=== PATIENT | male | born 1970 | race Hispanic/Latino ===

== ENCOUNTER 2021-09-30 21:32 | Emergency (ER) | payer OTHER ==
[2021-09-30 23:03] LABS: Bilirubin Neg (Negative); Blood, Urine 50 (Negative); Clarity Clear (Clear); Glucose, Urine (Dipstick) Normal (Negative); Ketone, Urine Negative (Negative); Leukocyte Negative (Negative); Nitrite Negative (Negative); Protein, Urine (Dipstick) Negative (Neg-Trace); Urobilinogen Normal mg/dL (Less than 2)
[2021-09-30 23:18] LABS: Bacteria/HPF Rare-Few HPF (None Seen); Squamous Epithelial 0-3 HPF (0-3)
[2021-09-30 23:45] LABS: ALT (SGPT) 55 U/L (8-55); AST (SGOT) 110 U/L (5-34); Albumin 2.4 g/dL (3.5-5.0); Alkaline Phosphatase 201 U/L (40-110); Anion Gap 9 mmol/L (10-20); BUN (Urea Nitrogen) 11 mg/dL (8.4-25.7); Bilirubin, Total 2.6 mg/dL (0.2-1.2); CK (CPK) 1637 U/L (30-200); Calc. Creatinine Clearance 0 mL/min (70-130); Calcium 7.3 mg/dL (7.8-10.44); Carbon Dioxide 18 mmol/L (22-29); Chloride 115 mmol/L (98-107); Globulin 3.6 g/dL (2.4-3.5); Glucose 92 mg/dL (70-105); Magnesium 1.8 mg/dL (1.6-2.6); Potassium 3.6 mmol/L (3.5-5.1); Sodium 138 mmol/L (136-145)
[2021-09-30 23:48] LABS: Platelet Count 66 10x3/uL (150-450)
[2021-09-30 23:49] LABS: Hemoglobin 11.7 g/dL (13.5-17.5); Mean Corpuscular HGB CONC 34.3 g/dL (32.0-36.0); Mean Corpuscular Hemoglobin 32.8 pg (27.0-33.0); Mean Corpuscular Volume 95.5 fl (81.2-95.1); Mean Platelet Volume 12.7 fl (7.4-10.4); RBC Distribution Width 14.6 % (11.5-14.5); Red Blood Cell (RBC) Count 3.57 10x6/uL (4.32-5.72); White Blood Cell (WBC) Count 5.2 10x3/uL (3.5-10.5)
[2021-09-30 23:50] LABS: MDiff Complete? YES
[2021-09-30] MEDS ORDERED: cefTRIAXone\\ROCEPHIN 1 GM VIAL ONE (23:51)
[2021-10-01 02:05] LABS: SARS-CoV-2 NAA Rapid Test Not Detected (NotDetected)
[2021-10-01 02:56] LABS: Platelet Morphology Comment Appears Decreased; RBC Morphology Normal
== END 2021-10-01 02:57 | disposition short-term general hospital (02) ==
LOC: CSHERS 21:32
DX: G93.41 Metabolic encephalopathy (principal); N39.0 Urinary tract infection, site not specified; G40.909 Epilepsy, unspecified, not intractable, without status epilepticus; Z79.899 Other long term (current) drug therapy
CPT/HCPCS: 51701; 70450; 71045; 74177; 80053; 81003; 81015; 82140; 82550; 83605; 83735; 85025; 87040; 87086; 93005; 96365; J0696; U0002

== ENCOUNTER 2022-01-13 21:09 | Emergency (ER) | payer OTHER ==
[2022-01-13] MEDS ORDERED: Cefepime 2 GM VIAL ONE (21:48)
[2022-01-13 22:07] LABS: #Monocytes 0.2 10x3/uL (0.0-1.1); #Neutrophils 2.2 10x3/uL (1.5-8.4); %Lymphocytes 7.7 % (18.0-47.0); %Monocytes 5.8 % (0.0-10.0); %Neutrophils 86.1 % (40.0-75.0); Hemoglobin 10.5 g/dL (13.5-17.5); Mean Corpuscular HGB CONC 34.5 g/dL (32.0-36.0); Mean Corpuscular Hemoglobin 32.8 pg (27.0-33.0); Mean Platelet Volume 13.2 fl (7.4-10.4); Platelet Count 40 10x3/uL (150-450); RBC Distribution Width 15.5 % (11.5-14.5); White Blood Cell (WBC) Count 2.6 10x3/uL (3.5-10.5)
[2022-01-13 22:09] LABS: ALT (SGPT) 51 U/L (8-55); AST (SGOT) 100 U/L (5-34); Albumin 2.1 g/dL (3.5-5.0); Alkaline Phosphatase 124 U/L (40-110); Anion Gap 11 mmol/L (10-20); BUN (Urea Nitrogen) 16 mg/dL (8.4-25.7); Bilirubin, Total 1.8 mg/dL (0.2-1.2); Calc. Creatinine Clearance 0 mL/min (70-130); Calcium 7.4 mg/dL (7.8-10.44); Carbon Dioxide 17 mmol/L (22-29); Chloride 114 mmol/L (98-107); Globulin 3.3 g/dL (2.4-3.5); Glucose 93 mg/dL (70-105); Lipase 79 U/L (8-78); Potassium 3.6 mmol/L (3.5-5.1); Protein, Total 5.4 g/dL (6.0-8.3); Sodium 138 mmol/L (136-145)
[2022-01-13 22:44] LABS: Bilirubin Neg (Negative); Blood, Urine 250 (Negative); Clarity Slightly Cloudy (Clear); Glucose, Urine (Dipstick) Normal (Negative); Ketone, Urine Negative (Negative); Leukocyte 500 (Negative); Nitrite Negative (Negative); Protein, Urine (Dipstick) 100 mg/dl (Neg-Trace); Specific Gravity, Urine 1.015 (1.002-1.036); Urobilinogen Normal mg/dL (Less than 2)
[2022-01-13] MEDS ORDERED: Vancomycin HCl 500 MG VIAL ONE (22:48)
[2022-01-13 23:10] LABS: Bacteria/HPF 4+ HPF (None Seen); Mucous/LPF 3+ LPF (<2+); Squamous Epithelial 0-3 HPF (0-3); WBC/HPF 21-50 HPF (0-3); White Blood Cell Cast 0-3 LPF (None Seen)
[2022-01-14 00:26] LABS: SARS-CoV-2 NAA Rapid Test Not Detected (NotDetected)
[2022-01-14 01:23] LABS: INR-International Normal Ratio 1.6; PTT 52.7 sec (22.0-33.0); Prothrombin Time 17.8 sec (9.5-12.1)
[2022-01-14] MEDS ORDERED: Lactated Ringer's 1,000 ML IV SCH (02:15)
[2022-01-14] MEDS ORDERED: Cefepime 2 GM in Sodium Chloride 0.9% 100 ML IVPB SCH (06:00)
[2022-01-14] MEDS ORDERED: Vancomycin HCl 1.25 GM in Sodium Chloride 0.9% 250 ML 300 ML IVPB SCH (09:00)
[2022-01-14] MEDS ORDERED: VANCOMYCIN 1.25 GM/250 ML BAG 1.25 GM in Premix Bag 1 BAG IVPB SCH (11:00)
== END 2022-01-14 02:47 | disposition short-term general hospital (02) ==
LOC: CSHERS 21:09
DX: A41.9 Sepsis, unspecified organism (principal); K72.90 Hepatic failure, unspecified without coma; N20.1 Calculus of ureter; G40.909 Epilepsy, unspecified, not intractable, without status epilepticus; Z85.05 Personal history of malignant neoplasm of liver; Z20.822 Contact with and (suspected) exposure to COVID-19; Z79.899 Other long term (current) drug therapy
CPT/HCPCS: 36415; 51701; 70450; 74177; 80053; 81003; 81015; 82140; 83605; 83690; 84484; 85025; 85610; 85730; 86850; 86900; 86901; 87040; 87077; 87149; 87186; 93005; 96374; 96375; J0692; J3370; J7120; J7620; P9047; U0002

== ENCOUNTER 2022-02-09 18:21 | Emergency (ER) | payer OTHER ==
[2022-02-09] MEDS ORDERED: Morphine 4 MG/ML VIAL ONE ×2 (18:42→23:26)
[2022-02-09] MEDS ORDERED: Ondansetron PF 4 MG/2 ML Vial ONE (18:43)
[2022-02-09 19:13] LABS: Clarity Cloudy (Clear); Leukocyte Unable to Interpret (Negative); Specific Gravity, Urine 1.005 (1.002-1.036)
[2022-02-09 19:14] LABS: Glucose, Urine (Dipstick) Unable to Interpret mg/dL (Negative); Nitrite Unable to Interpret (Negative); Protein, Urine (Dipstick) Unable to Interpret mg/dl (Neg-Trace)
[2022-02-09 19:15] LABS: Bilirubin Unable to Interpret (Negative); Blood, Urine Unable to Interpret (Negative); Ketone, Urine Unable to Interpret mg/dL (Negative); Urobilinogen UNABLE TO INTERPRET mg/dL (Less than 2)
[2022-02-09 19:16] LABS: Bacteria/HPF None Seen HPF (None Seen); RBC/HPF Greater than 50 HPF (0-3); Squamous Epithelial 0-3 HPF (0-3); WBC/HPF 0-3 HPF (0-3)
[2022-02-09 19:49] LABS: Hemoglobin 10.7 g/dL (13.5-17.5); Mean Corpuscular HGB CONC 33.5 g/dL (32.0-36.0); Mean Corpuscular Volume 95.5 fl (81.2-95.1); Mean Platelet Volume 13.4 fl (7.4-10.4); Platelet Count 69 10x3/uL (150-450); RBC Distribution Width 16.7 % (11.5-14.5); Red Blood Cell (RBC) Count 3.34 10x6/uL (4.32-5.72)
[2022-02-09 19:54] LABS: MDiff Complete? YES
[2022-02-09 19:59] LABS: ALT (SGPT) 30 U/L (8-55); AST (SGOT) 72 U/L (5-34); Albumin 2.7 g/dL (3.5-5.0); Alkaline Phosphatase 127 U/L (40-110); Anion Gap 13 mmol/L (10-20); BUN (Urea Nitrogen) 12 mg/dL (8.4-25.7); Calc. Creatinine Clearance 0 mL/min (70-130); Calcium 8.1 mg/dL (7.8-10.44); Carbon Dioxide 20 mmol/L (22-29); Chloride 109 mmol/L (98-107); Globulin 3.5 g/dL (2.4-3.5); Glucose 85 mg/dL (70-105); Lipase 421 U/L (8-78); Potassium 3.9 mmol/L (3.5-5.1); Protein, Total 6.2 g/dL (6.0-8.3); Sodium 138 mmol/L (136-145)
[2022-02-09 20:11] LABS: Eosinophils 3 % (0-10); Lymphocytes 28 % (21-51); Monocytes 9 % (0-10); Neutrophil 60 % (42-75)
[2022-02-09 20:12] LABS: Anisocytosis SLIGHT = 6-15 cells (100X) (0-5/hpf); Platelet Morphology Comment Appears Decreased
[2022-02-09 20:51] LABS: SARS-CoV-2 NAA Rapid Test Not Detected (NotDetected)
[2022-02-10] MEDS ORDERED: levETIRAcetam 500 MG TAB ONE (05:31)
[2022-02-10] MEDS ORDERED: Propranolol 10 MG TAB PO SCH (06:00)
[2022-02-10] MEDS ORDERED: Morphine 4 MG/ML VIAL ONE (06:44)
== END 2022-02-10 06:31 | disposition short-term general hospital (02) ==
LOC: CSHERS 18:21 → EEVIPCON 18:21 → CSHERS 02-10 06:31
DX: K56.600 Partial intestinal obstruction, unspecified as to cause (principal); K74.60 Unspecified cirrhosis of liver; G40.909 Epilepsy, unspecified, not intractable, without status epilepticus; Z79.899 Other long term (current) drug therapy; Z20.822 Contact with and (suspected) exposure to COVID-19
CPT/HCPCS: 36415; 74177; 80053; 81003; 81015; 83690; 85025; 87086; 96374; 96375; 96376; J2270; J2405; U0002

== ENCOUNTER 2022-03-08 12:06 | Emergency (ER) | payer OTHER ==
[~2022-03-08 12:06] MED LIST: Iopamidol 300 61% 100 ML VIAL FS ONE
[2022-03-08 13:20] LABS: #Monocytes 0.2 10x3/uL (0.0-1.1); #Neutrophils 1.1 10x3/uL (1.5-8.4); %Eosinophils 2.2 % (0.0-6.0); %Lymphocytes 23.9 % (18.0-47.0); %Monocytes 12.5 % (0.0-10.0); %Neutrophils 61.4 % (40.0-75.0); Mean Corpuscular HGB CONC 33.8 g/dL (32.0-36.0); Mean Corpuscular Hemoglobin 32.5 pg (27.0-33.0); Mean Corpuscular Volume 96.1 fl (81.2-95.1); Mean Platelet Volume 12.1 fl (7.4-10.4); Platelet Count 51 10x3/uL (150-450); RBC Distribution Width 15.5 % (11.5-14.5); Red Blood Cell (RBC) Count 3.08 10x6/uL (4.32-5.72); White Blood Cell (WBC) Count 1.8 10x3/uL (3.5-10.5)
[2022-03-08 13:36] LABS: ALT (SGPT) 39 U/L (8-55); AST (SGOT) 79 U/L (5-34); Albumin 2.3 g/dL (3.5-5.0); Alkaline Phosphatase 93 U/L (40-110); Anion Gap 7 mmol/L (10-20); BUN (Urea Nitrogen) 12 mg/dL (8.4-25.7); Bilirubin, Total 1.8 mg/dL (0.2-1.2); Calc. Creatinine Clearance 0 mL/min (70-130); Calcium 7.2 mg/dL (7.8-10.44); Carbon Dioxide 21 mmol/L (22-29); Chloride 112 mmol/L (98-107); Glucose 96 mg/dL (70-105); Protein, Total 5.3 g/dL (6.0-8.3); Sodium 136 mmol/L (136-145)
[2022-03-08] MEDS ORDERED: Morphine 4 MG/ML VIAL ONE (13:59)
[2022-03-08 14:42] LABS: SARS-CoV-2 NAA Rapid Test Not Detected (NotDetected)
[2022-03-08 14:48] LABS: Bilirubin Neg (Negative); Blood, Urine 250 (Negative); Clarity Cloudy (Clear); Glucose, Urine (Dipstick) Normal (Negative); Ketone, Urine Negative (Negative); Leukocyte 25 (Negative); Nitrite Negative (Negative); Protein, Urine (Dipstick) 30 mg/dl (Neg-Trace); Urobilinogen Normal mg/dL (Less than 2)
[2022-03-08 14:49] LABS: Bacteria/HPF Rare-Few HPF (None Seen); RBC/HPF Greater than 50 HPF (0-3); Squamous Epithelial 0-3 HPF (0-3); WBC/HPF 0-3 HPF (0-3)
[2022-03-08] MEDS ORDERED: Ketorolac Tromethamine 30 MG/ML VIAL ONE (20:43)
== END 2022-03-08 21:53 | disposition short-term general hospital (02) ==
LOC: CSHERS 12:06
DX: K40.90 Unilateral inguinal hernia, without obstruction or gangrene, not specified as recurrent (principal); Z20.822 Contact with and (suspected) exposure to COVID-19; Z79.899 Other long term (current) drug therapy
CPT/HCPCS: 36415; 74177; 76870; 80053; 81003; 81015; 83605; 85025; 93976; 96365; 96366; 96375; J1885; J1956; J2270; Q9967; U0002

== ENCOUNTER 2022-04-06 13:56 | Emergency (ER) | payer OTHER ==
[2022-04-06 14:35] LABS: #Eosinphils 0.2 10x3/uL (0.0-0.5); #Monocytes 0.4 10x3/uL (0.0-1.1); #Neutrophils 2.3 10x3/uL (1.5-8.4); %Basophils 0.5 % (0.0-2.0); %Eosinophils 4.7 % (0.0-6.0); %Lymphocytes 19.8 % (18.0-47.0); %Monocytes 10.4 % (0.0-10.0); %Neutrophils 64.3 % (40.0-75.0); Hemoglobin 11.7 g/dL (13.5-17.5); Mean Corpuscular HGB CONC 35.6 g/dL (32.0-36.0); Mean Corpuscular Hemoglobin 33.7 pg (27.0-33.0); Mean Corpuscular Volume 94.8 fl (81.2-95.1); Platelet Count 53 10x3/uL (150-450); Red Blood Cell (RBC) Count 3.47 10x6/uL (4.32-5.72); White Blood Cell (WBC) Count 3.6 10x3/uL (3.5-10.5)
[2022-04-06] MEDS ORDERED: Morphine 4 MG/ML VIAL ONE (14:40)
[2022-04-06 14:48] LABS: ALT (SGPT) 47 U/L (8-55); AST (SGOT) 102 U/L (5-34); Albumin 2.2 g/dL (3.5-5.0); Alkaline Phosphatase 166 U/L (40-110); Anion Gap 9 mmol/L (10-20); BUN (Urea Nitrogen) 15 mg/dL (8.4-25.7); Bilirubin, Total 1.9 mg/dL (0.2-1.2); Calc. Creatinine Clearance 0 mL/min (70-130); Calcium 7.5 mg/dL (7.8-10.44); Carbon Dioxide 26 mmol/L (22-29); Chloride 112 mmol/L (98-107); Globulin 3.4 g/dL (2.4-3.5); Glucose 98 mg/dL (70-105); Lipase 247 U/L (8-78); Potassium 3.8 mmol/L (3.5-5.1); Protein, Total 5.6 g/dL (6.0-8.3); Sodium 143 mmol/L (136-145)
[2022-04-06 15:00] LABS: Bilirubin Neg (Negative); Blood, Urine 250 (Negative); Clarity Bloody (Clear); Glucose, Urine (Dipstick) Normal (Negative); Ketone, Urine 5 mg/dL (Negative); Leukocyte 100 (Negative); Nitrite Negative (Negative); Protein, Urine (Dipstick) 100 mg/dl (Neg-Trace); Urobilinogen Normal mg/dL (Less than 2)
[2022-04-06 15:01] LABS: Bacteria/HPF None Seen HPF (None Seen); RBC/HPF Greater than 50 HPF (0-3); Squamous Epithelial 0-3 HPF (0-3)
[2022-04-06 16:02] LABS: SARS-CoV-2 NAA Rapid Test Not Detected (NotDetected)
== END 2022-04-06 20:25 | disposition short-term general hospital (02) ==
LOC: CSHERS 13:56 → EEVIPCON 13:56 → CSHERS 20:25
DX: K85.90 Acute pancreatitis without necrosis or infection, unspecified (principal); R31.0 Gross hematuria; Z20.822 Contact with and (suspected) exposure to COVID-19; G40.909 Epilepsy, unspecified, not intractable, without status epilepticus; Z79.899 Other long term (current) drug therapy
CPT/HCPCS: 36415; 74177; 80053; 81003; 81015; 83605; 83690; 85025; 87040; 96374; J2270; U0002

== ENCOUNTER 2022-10-30 02:39 | Inpatient (IN) | payer OTHER ==
[2022-10-30 03:13] LABS: Bilirubin Neg (Negative); Blood, Urine 250 (Negative); Clarity Cloudy (Clear); Glucose, Urine (Dipstick) Normal (Negative); Ketone, Urine 5 mg/dL (Negative); Leukocyte 500 (Negative); Nitrite Negative (Negative); Protein, Urine (Dipstick) 100 mg/dl (Neg-Trace); Specific Gravity, Urine 1.015 (1.005-1.030); Urobilinogen Normal mg/dL (Less than 2)
[2022-10-30] MEDS ORDERED: Dextrose 50% Abboject 50 ML SYRINGE ONE (03:16)
[2022-10-30 03:22] LABS: Squamous Epithelial 0-3 HPF (0-3); WBC/HPF Greater Than 50 HPF (0-3)
[2022-10-30 03:23] LABS: Bacteria/HPF 3+ HPF (None Seen); Calcium Oxalate Crystals 1+ HPF (None Seen); Mucous/LPF 2+ LPF (<2+); Triple Phosphate Crystal 1+ HPF (None Seen)
[2022-10-30 03:28] LABS: Amphetamine Not Detected (NotDetected); Barbiturates Screen Not Detected (NotDetected); Benzodiazepine Screen Not Detected (NotDetected); Cocaine Metabolite Screen Not Detected (NotDetected); Methadone Not Detected (NotDetected); Methamphetamine Not Detected (NotDetected); Opiate Screen Detected (NotDetected); Oxycodone Screen Not Detected (NotDetected); Phencyclidine (PCP) Not Detected (NotDetected); THC/Cannabinoid Screen Not Detected (NotDetected); Tricyclic Screen Not Detected (NotDetected)
[2022-10-30 03:48] LABS: SARS-CoV-2 NAA Rapid Test Not Detected (NotDetected)
[2022-10-30 03:54] LABS: Hemoglobin 10.1 g/dL (13.5-17.5); Mean Corpuscular HGB CONC 35.9 g/dL (32.0-36.0); Mean Corpuscular Hemoglobin 35.2 pg (27.0-33.0); Mean Corpuscular Volume 97.9 fl (81.2-95.1); Mean Platelet Volume 12.5 fl (7.4-10.4); Platelet Count 48 10x3/uL (150-450); RBC Distribution Width 16.1 % (11.5-14.5); Red Blood Cell (RBC) Count 2.87 10x6/uL (4.32-5.72); White Blood Cell (WBC) Count 2.8 10x3/uL (3.5-10.5)
[2022-10-30] MEDS ORDERED: Vancomycin 1 GM VIAL ONE (03:54)
[2022-10-30] MEDS ORDERED: Piperacillin/Tazobactam 4.5 GM VIAL ONE (03:54)
[2022-10-30 04:05] LABS: MDiff Complete? YES; Platelet Morphology Comment Appears Decreased
[2022-10-30 04:14] LABS: Alcohol Less than 10 mg/dL (Less than 10); CK (CPK) 396 U/L (30-200); Lipase 37 U/L (8-78); Magnesium 1.2 mg/dL (1.6-2.6); Salicylate Less than 8.0 mg/dL (15.0-30.0)
[2022-10-30 04:15] LABS: ALT (SGPT) 153 U/L (8-55); AST (SGOT) 204 U/L (5-34); Albumin 1.8 g/dL (3.5-5.0); Alkaline Phosphatase 95 U/L (40-110); Anion Gap 11 mmol/L (10-20); BUN (Urea Nitrogen) 22 mg/dL (8.4-25.7); Bilirubin, Total 3.7 mg/dL (0.2-1.2); Calc. Creatinine Clearance 0 mL/min (70-130); Carbon Dioxide 20 mmol/L (22-29); Chloride 103 mmol/L (98-107); Estimated GFR 64; Globulin 2.5 g/dL (2.4-3.5); Glucose 183 mg/dL (70-105); Potassium 3.8 mmol/L (3.5-5.1); Protein, Total 4.3 g/dL (6.0-8.3); Sodium 130 mmol/L (136-145)
[2022-10-30 04:26] LABS: Calcium 6.1 mg/dL (7.8-10.44)
[2022-10-30 04:38] LABS: D-Dimer Test 8.46 mg/L FEU (0.19-0.50); INR-International Normal Ratio 1.8; PTT 54.7 sec (22.0-33.0); Prothrombin Time 18.8 sec (9.5-12.1)
[2022-10-30] MEDS ORDERED: Calcium Chloride 1 GM/10 ML Abboject SYRINGE ONE (04:41)
[2022-10-30] MEDS ORDERED: Magnesium 2 GM/50 ML BAG (IN WATER) ONE (04:42)
[2022-10-30 04:54] LABS: Band 11 % (5-11); Eosinophils 1 % (0-10); Lymphocytes 9 % (21-51); Metamyelocyte 2 % (0-0); Monocytes 11 % (0-10); Neutrophil 66 % (42-75)
[2022-10-30 07:24] LABS: Lactic Acid 3.7 mmol/L (0.5-2.2)
[2022-10-30] MEDS ORDERED: Piperacillin/Tazobactam 3.375 GM VIAL ONE (11:55)
[2022-10-30] MEDS ORDERED: Iopamidol 300 61% 100 ML VIAL FS ONE (13:59)
[2022-10-30] MEDS ORDERED: Ondansetron PF 4 MG/2 ML Vial IVP PRN (18:11)
[2022-10-30] MEDS ORDERED: Vancomycin HCl 750 MG in Sodium Chloride 0.9% 250 ML 250 ML IVPB SCH (18:30)
[2022-10-30 19:14] VITALS: BMI 33.7
[2022-10-30] MEDS ORDERED: Sodium Chloride 0.9% 1,000 ML IV SCH (19:30)
[2022-10-30] MEDS ORDERED: Acetaminophen 650 MG Suppository PR PRN (19:43)
[2022-10-30] MEDS: Lactated Ringer's 1,000 ML IV SCH (19:49)
[2022-10-30] MEDS ORDERED: FLU VACC QS2022-23(6MOS UP)/PF 60 MCG/0.5 ML SYRINGE IM ONE (20:00)
[2022-10-30] MEDS: Vancomycin HCl 1 GM in Sodium Chloride 0.9% 250 ML 250 ML IVPB SCH (20:11)
[2022-10-30 20:33] LABS: Lactic Acid 4.4 mmol/L (0.5-2.2)
[2022-10-30] MEDS ORDERED: levETIRAcetam in NS 500 MG in Premix Bag 1 BAG IVPB SCH (21:00)
[2022-10-30 21:32] LABS: Hemoglobin 10.7 g/dL (13.5-17.5); Mean Corpuscular HGB CONC 34.4 g/dL (32.0-36.0); Mean Corpuscular Hemoglobin 35.2 pg (27.0-33.0); Mean Platelet Volume 13.5 fl (7.4-10.4); RBC Distribution Width 17.3 % (11.5-14.5); Red Blood Cell (RBC) Count 3.04 10x6/uL (4.32-5.72); White Blood Cell (WBC) Count 4.9 10x3/uL (3.5-10.5)
[2022-10-30 21:44] LABS: ALT (SGPT) 134 U/L (8-55); AST (SGOT) 155 U/L (5-34); Albumin 1.7 g/dL (3.5-5.0); Alkaline Phosphatase 77 U/L (40-110); Anion Gap 12 mmol/L (10-20); BUN (Urea Nitrogen) 25 mg/dL (8.4-25.7); Bilirubin, Total 3.4 mg/dL (0.2-1.2); Calc. Creatinine Clearance 91 mL/min (70-130); Carbon Dioxide 16 mmol/L (22-29); Chloride 110 mmol/L (98-107); Estimated GFR 63; Globulin 2.9 g/dL (2.4-3.5); Glucose 83 mg/dL (70-105); Potassium 4.3 mmol/L (3.5-5.1); Protein, Total 4.6 g/dL (6.0-8.3); Sodium 134 mmol/L (136-145)
[2022-10-30 21:46] LABS: Calcium 6.5 mg/dL (7.8-10.44)
[2022-10-30 21:50] LABS: Platelet Count 53 10x3/uL (130-400)
[2022-10-30 21:51] LABS: MDiff Complete? YES; Platelet Morphology Comment Appears Decreased
[2022-10-30] MEDS: Cefepime 1 GM in Sodium Chloride 0.9% 100 ML IVPB SCH (22:06)
[2022-10-30] MEDS: levETIRAcetam 500 MG/5 ML VIAL SLOW IVP SCH (22:07)
[2022-10-30 22:08] LABS: Band 19 % (5-11); Lymphocytes 3 % (21-51); Monocytes 18 % (0-10); Neutrophil 59 % (42-75); Reactive Lymphocytes 1 % (0-10)
[2022-10-30] MEDS: Propranolol 10 MG TAB PO SCH (22:29)
[2022-10-30 22:49] LABS: Mean Corpuscular Volume 102.3 fl (81.2-95.1)
[2022-10-30] MEDS: Morphine 2 MG/ML VIAL SLOW IVP PRN (23:36)
[2022-10-31] MEDS: Morphine 2 MG/ML VIAL SLOW IVP PRN (03:37)
[2022-10-31] MEDS: Lactated Ringer's 1,000 ML IV SCH (03:39)
[2022-10-31 04:36] LABS: Platelet Count 53 10x3/uL (150-450)
[2022-10-31 04:37] LABS: Hemoglobin 10.1 g/dL (13.5-17.5); Mean Corpuscular HGB CONC 35.7 g/dL (32.0-36.0); Mean Corpuscular Hemoglobin 35.8 pg (27.0-33.0); Mean Corpuscular Volume 100.4 fl (81.2-95.1); Mean Platelet Volume 12.9 fl (7.4-10.4); RBC Distribution Width 17.3 % (11.5-14.5); Red Blood Cell (RBC) Count 2.82 10x6/uL (4.32-5.72)
[2022-10-31 04:48] LABS: ALT (SGPT) 112 U/L (8-55); AST (SGOT) 131 U/L (5-34); Albumin 1.6 g/dL (3.5-5.0); Alkaline Phosphatase 72 U/L (40-110); Anion Gap 15 mmol/L (10-20); BUN (Urea Nitrogen) 32 mg/dL (8.4-25.7); Calc. Creatinine Clearance 80 mL/min (70-130); Carbon Dioxide 13 mmol/L (22-29); Chloride 112 mmol/L (98-107); Estimated GFR 54; Globulin 2.6 g/dL (2.4-3.5); Glucose 97 mg/dL (70-105); Magnesium 1.7 mg/dL (1.6-2.6); Potassium 4.8 mmol/L (3.5-5.1); Protein, Total 4.2 g/dL (6.0-8.3); Sodium 135 mmol/L (136-145)
[2022-10-31 05:02] LABS: Calcium 6.4 mg/dL (7.8-10.44)
[2022-10-31 05:09] LABS: MDiff Complete? YES; Platelet Morphology Comment Appears Decreased
[2022-10-31 05:13] LABS: Band 14 % (5-11); Lymphocytes 10 % (21-51); Monocytes 15 % (0-10); Neutrophil 61 % (42-75)
[2022-10-31] MEDS: Vancomycin HCl 1 GM in Sodium Chloride 0.9% 250 ML 250 ML IVPB SCH (08:03)
[2022-10-31] MEDS: levETIRAcetam 500 MG/5 ML VIAL SLOW IVP SCH (08:03)
[2022-10-31] MEDS: Cefepime 1 GM in Sodium Chloride 0.9% 100 ML IVPB SCH (08:03)
[2022-10-31] MEDS ORDERED: Magnesium 2 GM/50 ML(in water) 2 GM in Premix Bag 1 BAG IVPB SCH (08:15)
[2022-10-31] MEDS ORDERED: CALCIUM GLUC 1 GM/NS 50 ML 1 GM in Premix Bag 1 BAG IVPB SCH (08:20)
[2022-10-31 08:58] LABS: Lactic Acid 4.3 mmol/L (0.5-2.2)
[2022-10-31] MEDS ORDERED: Pantoprazole 40 MG VIAL IVP SCH (09:00)
[2022-10-31] MEDS ORDERED: Spironolactone 25 MG TAB PO SCH (09:00)
[2022-10-31 09:16] VITALS: BP 122/74; TEMP 98
[2022-10-31] MEDS: Propranolol 10 MG TAB PO SCH (10:27)
[2022-10-31] MEDS ORDERED: Sodium Chloride 0.9% 500 ML IV SCH (10:30)
[2022-10-31 13:14] LABS: Lactic Acid 3.4 mmol/L (0.5-2.2)
[2022-10-31 13:18] LABS: Magnesium 2.4 mg/dL (1.6-2.6); Phosphorus 3.6 mg/dL (2.3-4.7)
[2022-10-31] MEDS ORDERED: Lactated Ringer's 1,000 ML IV SCH (14:16)
[2022-10-31 19:24] LABS: Vancomycin, Trough 14.3 ug/mL
== END 2022-10-31 20:10 | disposition short-term general hospital (02) | DRG 871 ==
LOC: CSHERS 02:39 → CSHIMCU 18:45
PROVIDERS: ADMIT Internal Medicine; ATTEND Internal Medicine
PROC: 0D9670Z Drainage of Stomach with Drainage Device, Via Natural or Artificial Opening (ICD-10-PCS; principal; 2022-10-30)
PROC: 3E03329 Introduction of Other Anti-infective into Peripheral Vein, Percutaneous Approach (ICD-10-PCS; 2022-10-30)
DX: A41.9 Sepsis, unspecified organism (principal); G93.41 Metabolic encephalopathy; N17.9 Acute kidney failure, unspecified; K56.609 Unspecified intestinal obstruction, unspecified as to partial versus complete obstruction; N39.0 Urinary tract infection, site not specified; D61.818 Other pancytopenia; K76.6 Portal hypertension; K81.0 Acute cholecystitis; K74.60 Unspecified cirrhosis of liver; K21.9 Gastro-esophageal reflux disease without esophagitis; F32.A Depression, unspecified; G40.909 Epilepsy, unspecified, not intractable, without status epilepticus; F41.9 Anxiety disorder, unspecified; Z20.822 Contact with and (suspected) exposure to COVID-19; E83.42 Hypomagnesemia; N20.0 Calculus of kidney; E86.0 Dehydration; N40.0 Benign prostatic hyperplasia without lower urinary tract symptoms; Z79.899 Other long term (current) drug therapy
CPT/HCPCS: 36415; 36416; 70450; 71045; 74177; 80053; 80177; 80202; 80306; 80307; 81003; 81015; 82140; 82330; 82550; 83605; 83690; 83735; 83880; 84100; 84443; 84484; 85025; 85379; 85610; 85730; 86140; 87040; 87077; 87086; 87186; 93005; 94760; 96361; 96365; 96366; 96367; 96375; C9113; J0610; J0692; J1953; J2270; J2405; J2543; J3370; J3475; J3490; J7030; J7050; J7120; J7999; Q9967; U0002